=== PATIENT | female | born 1990 | race Caucasian/White ===

== ENCOUNTER 2018-01-07 20:03 | Inpatient (IN) | payer BC ==
[~2018-01-07] VITALS: Ht 162.6 cm; Wt 83.6 kg
[~2018-01-07 20:03] MED LIST: ACET1TAB43 PO; APRI; ASCO10006 PO; DOCU100C37 PO; FERR325T18 PO; FOLI0.4T2 PO; IBUP-1773 PO; PREN-37 PO
--- OUTSIDE RECORDS SUMMARY | 2018-01-07 20:07 | XMS REPORT | Continuity of Care Document ---
Author Author [facility] Organization [facility] Address Unknown Phone Unavailable Allergies Active Description Code Type Severity Reaction Onset Reported/Identified Relationship to Patient Clinical Status Yes amoxicillin [id number] Drug Allergy Mild N/A 06/30/2009 Yes Penicillins [id number] Drug Allergy Mild N/A 06/30/2009 Medications There is no data. Problems Date Dx Coded Attending Type Code Diagnosis Diagnosed By 07/02/2015 YANDEL MÁRQUEZ DO, Ot D62 ACUTE POSTHEMORRHAGIC ANEMIA 07/02/2015 YANDEL MÁRQEUZ DO, Ot K42.9 UMBILICAL HERNIA WITHOUT OBSTRUCTION OR 07/02/2015 YANDEL MÁRQUEZ DO, Ot O48.0 POST-TERM 07/02/2015 YANDEL MÁRQUEZ DO, Ot O70.1 SECOND DEGREE PERINEAL LACERATION DURING 07/02/2015 YANDEL MÁRQUEZ DO, Ot O71.89 OTHER SPECIFIED OBSTETRIC TRAUMA 07/02/2015 YANDEL MÁRQUEZ DO, Ot O90.81 ANEMIA OF THE PUERPERIUM 07/02/2015 YANDEL MÁRQUEZ DO, Ot O99.62 DISEASES OF THE DIGESTIVE SYSTEM COMPLIC 07/02/2015 YANDEL MÁRQUEZ DO, Ot Z23 ENCOUNTER FOR IMMUNIZATION 07/02/2015 YANDEL MÁRQUEZ DO, Ot Z37.0 SINGLE LIVE 07/02/2015 YANDEL MÁRQUEZ DO, Ot Z3A.40 40 WEEKS GESTATION OF Procedures Code Description Performed By Performed On [id number] REPAIR PERINEUM MUSCLE, OPEN APPROACH 07/01/2015 [id number] DELIVERY OF PRODUCTS OF CONCEPTION, EXTE 07/01/2015 Results There is no data. Encounters ACCT No. Visit Date/Time Discharge Status Pt. Type Provider Facility Loc./Unit Complaint [id number] 06/30/2015 19:19:00 07/02/2015 16:15:00 DIS Inpatient YANDEL MÁRQUEZ DO [facility] INDUCTION [id number] 01/07/2018 20:03:00 ACT Inpatient YANDEL MÁRQUEZ DO [facility] INDUCTION
[2018-01-07] MEDS: LACTATED RINGERS 1,000 ML IV SCH (20:45)
[2018-01-07 21:00] VITALS: BP 134/73
[2018-01-07] MEDS ORDERED: MISOPROSTOL 100 MCG (CYTOTEC) TAB ONE (21:30)
[2018-01-07] MEDS ORDERED: MINERAL OIL CONCENTRATE 99.9% 15 ML UDC TOP PRN (21:30)
[2018-01-07] MEDS ORDERED: MISOPROSTOL 100 MCG (CYTOTEC) TAB PO ONE (21:30)
[2018-01-07] MEDS ORDERED: TERBUTALINE INJ 1 MG/ML (BRETHINE) AMP SC PRN (21:30)
[2018-01-07] MEDS ORDERED: D5 LR IV SOLUTION 1,000 ML IV ONE (21:31)
[2018-01-07 21:32] LABS: BASOPHILS % (AUTO) 0 % (0-10); EOSINOPHILS # (AUTO) 0.1 10^3/uL (0.0-0.3); EOSINOPHILS % (AUTO) 1 % (0-10); HEMATOCRIT 36 % (35-52); HEMOGLOBIN 12.4 G/DL (11.5-16.0); LYMPHOCYTES # (AUTO) 1.5 X 10^3 (1.0-4.0); LYMPHOCYTES % (AUTO) 15 % (12-44); MEAN CORPUSCULAR HEMOGLOBIN 32 PG (25-34); MEAN CORPUSCULAR HGB CONC 34 G/DL (32-36); MEAN CORPUSCULAR VOLUME 93 FL (80-99); MEAN PLATELET VOLUME 9.8 FL (7.4-10.4); MONOCYTES # (AUTO) 0.5 X 10^3 (0.0-1.0); MONOCYTES % (AUTO) 5 % (0-12); NEUTROPHILS # (AUTO) 8.5 X 10^3 (1.8-7.8); NEUTROPHILS % (AUTO) 80 % (42-75); PLATELET COUNT 176 10^3/uL (130-400); RED BLOOD COUNT 3.87 10^6/uL (4.35-5.85); RED CELL DISTRIBUTION WIDTH 13.3 % (10.0-14.5); WHITE BLOOD COUNT 10.6 10^3/uL (4.3-11.0)
[2018-01-07] MEDS: D5 LR IV SOLUTION 1,000 ML IV SCH (21:50)
[2018-01-07 22:00] VITALS: BP 120/76
[2018-01-07] MEDS ORDERED: CATHETER FLUSH 10 ML SYR IV SCH (22:00)
[2018-01-07 23:00] VITALS: BP 118/65
[2018-01-08] VITALS (44 sets, daily range): BP systolic 95–166; BP diastolic 55–102
[2018-01-08] MEDS: MISOPROSTOL 100 MCG (CYTOTEC) TAB PO SCH ×3 (01:31→05:36)
[2018-01-08] MEDS: D5 LR IV SOLUTION 1,000 ML IV SCH (05:36)
[2018-01-08] MEDS: LACTATED RINGERS 1,000 ML IV SCH (06:26)
[2018-01-08] MEDS ORDERED: SUFENTA 0.6MCG/ML BUPIVA 0.125 100 ML ONE (06:41)
[2018-01-08] MEDS ORDERED: BUPIVACAINE 0.25% 30 ML (SENSORCAINE) VIAL ONE (06:49)
[2018-01-08] MEDS ORDERED: fentaNYL INJECTION 100 MCG/2 ML AMP ONE (06:50)
[2018-01-08] MEDS ORDERED: LACTATED RINGERS 1,000 ML IV ONE (07:36)
[2018-01-08] MEDS ORDERED: NALOXONE 0.4 MG/ML 1 ML (NARCAN) VIAL IV PRN ×2 (07:45)
[2018-01-08] MEDS ORDERED: METOCLOPRAMIDE INJ 10 MG/2 ML (REGLAN) IV PRN (07:45)
[2018-01-08] MEDS ORDERED: diphenhydrAMINE 50 MG/ML INJ (BENADRYL) IV PRN (07:45)
[2018-01-08] MEDS ORDERED: EPIDURAL (SUFENTA 0.6MCG/ML BUPIVA 0.125%) 100 ML BAG EPI PRN (07:45)
[2018-01-08] MEDS ORDERED: ONDANSETRON 4 MG/2 ML (SDV) Z0FRAN IV PRN (07:45)
[2018-01-08] MEDS ORDERED: OXYTOCIN/NORMAL SALINE 500 ML IV ONE (10:35)
[2018-01-08] MEDS ORDERED: OXYTOCIN/NORMAL SALINE 500 ML IV SCH (11:49)
--- NOTE | 2018-01-08 11:52 | OB Labor & Delivery Record ---
Vag Delivery Note Vag Delivery Note Date of Delivery: 01/08/18 Preoperative Diagnosis: Ame Tran is a 27 /Para 2/1 ,Gestational Age 39 weeks for induction of labor Postoperative Diagnosis: Same Surgeon: YANDEL MÁRQUEZ Anesthesia: epidural Delivery Type: epidural Findings: Viable female , apgars 8/9 weight pending Lacerations: 2nd degree Intact placenta with 3 vessel cord. No nuchal cord, body cord or shoulder dystocia Estimated Blood Loss: 200 ml Complications: None Condition: Stable Description of Procedure: The patient is a 27 /Para 2/1 ,Gestational Age 39 weeks for induction of labor. She was admitted and informed consent was obtained. Her labor course was remarkable for misoprostol, AROM, augmentation. She progressed to complete dilatation and began to push. She was then set up for delivery. The infant's head was delivered atraumatically in the OA position. The shoulders and remainder of the 's body were then delivered without difficulty. Upon delivery, the head was held below the level of the perineum and the mouth and nares were bulb suctioned. The cord was doubly clamped and cut and the infant was handed off to the pediatric staff. An intact placenta with 3-vessel cord delivered via Lavinia and there was found to be minimal bleeding.~ Vigorous fundal massage was performed and the fundus was found to be firm. IV oxytocin was given. Examination of the vagina and perineum revealed a 2nd laceration repaired in the usual fashion with 3-0 vicryl suture. Following the repair, sponge, instrument and needle counts were correct. Mom and baby were both in stable condition in the labor suite. Vitals - Labs Vital Signs - I&O Vital Signs Date Time Temp Pulse Resp B/P (MAP) Pulse Ox O2 Delivery O2 Flow Rate FiO2 01/08/18 09:30 98.3 120/69 (86) 01/08/18 09:25 76 127/73 (91) 97 01/08/18 09:20 77 120/75 (90) 97 01/08/18 09:15 74 18 115/67 (83) 96 01/08/18 09:07 67 119/69 (86) 98 01/08/18 09:00 69 18 118/73 (88) 97 01/08/18 08:45 92 18 110/69 (83) 97 01/08/18 08:30 91 18 107/70 (82) 97 01/08/18 08:15 99 18 125/74 (91) 96 01/08/18 08:07 80 121/74 (90) 96 01/08/18 08:03 81 121/76 (91) 96 01/08/18 08:00 01/08/18 07:56 92 18 129/74 (92) 98 01/08/18 07:51 85 18 121/68 (85) 98 01/08/18 07:48 70 18 122/71 (88) 01/08/18 07:46 78 18 116/68 (84) 01/08/18 07:45 74 18 131/65 (87) 98 01/08/18 07:40 77 18 129/58 (81) 01/08/18 07:38 81 18 133/77 (95) 97 01/08/18 07:35 70 18 113/66 (82) 01/08/18 07:30 80 18 109/66 (80) 98 01/08/18 07:28 80 18 128/78 (95) 99 01/08/18 07:23 78 18 133/82 (99) 01/08/18 07:20 99.1 84 18 130/83 (99) 01/08/18 07:15 82 18 154/86 (108) 100 01/08/18 07:00 70 18 126/87 (100) 01/08/18 06:00 98.9 85 18 123/78 (93) 01/08/18 05:00 75 18 115/72 (86) 01/08/18 04:00 99 18 105/56 (72) 01/08/18 03:00 72 18 95/55 (68) 01/08/18 02:00 72 18 118/76 (90) 01/08/18 01:00 78 18 116/69 (85) 01/08/18 00:00 85 18 112/65 (81) 01/07/18 23:00 91 18 118/65 (82) 01/07/18 22:00 90 18 120/76 (91) 01/07/18 21:00 105 18 134/73 (93) Labs Laboratory Tests 01/07/18 20:45: White Blood Count 10.6, Red Blood Count 3.87L, Hemoglobin 12.4, Hematocrit 36, Mean Corpuscular Volume 93, Mean Corpuscular Hemoglobin 32, Mean Corpuscular Hemoglobin Concent 34, Red Cell Distribution Width 13.3, Platelet Count 176, Mean Platelet Volume 9.8, Neutrophils (%) (Auto) 80H, Lymphocytes (%) (Auto) 15 , Monocytes (%) (Auto) 5, Eosinophils (%) (Auto) 1, Basophils (%) (Auto) 0, Neutrophils # (Auto) 8.5H, Lymphocytes # (Auto) 1.5, Monocytes # (Auto) 0.5, Eosinophils # (Auto) 0.1, Basophils # (Auto) 0.0 YANEDL MÁRQUEZ DO Jan 08, 2018 11:51
[2018-01-08] MEDS ORDERED: IBUPROFEN 600 MG (MOTRIN) TAB PO ONE (11:54)
[2018-01-08] MEDS ORDERED: ACETAMINOPHEN 500 MG TAB (TYLENOL) PO PRN (12:00)
[2018-01-08] MEDS ORDERED: BENZOCAINE/MENTHOL (DERMOPLAST) 56 ML CAN TP PRN (12:00)
[2018-01-08] MEDS ORDERED: WITCH HAZEL(TUCKS) 40 EA JAR TOP PRN (12:00)
[2018-01-08] MEDS ORDERED: MEASLES,MUMPS,RUBELLA 1 EA INJ SQ ONE (12:00)
[2018-01-08] MEDS ORDERED: TETANUS,DIPTH,PERTUSS P/F (BOOSTRIX) 0.5 ML VIAL IM ONE (12:00)
[2018-01-08] MEDS ORDERED: CATHETER FLUSH 10 ML SYR IV SCH (14:00)
[2018-01-08] MEDS: IBUPROFEN 600 MG (MOTRIN) TAB PO SCH ×2 (15:54→17:38)
[2018-01-08] MEDS ORDERED: DOCUSATE SODIUM 100 MG (COLACE) CAP PO SCH (21:00)
[2018-01-08] MEDS ORDERED: ZOLPIDEM 5 MG (AMBIEN) TAB PO SCH (21:00)
[2018-01-09] MEDS: IBUPROFEN 600 MG (MOTRIN) TAB PO SCH ×3 (00:09→12:37)
[2018-01-09 05:20] VITALS: BP 112/60
[2018-01-09 06:05] LABS: BASOPHILS % (AUTO) 0 % (0-10); EOSINOPHILS # (AUTO) 0.1 10^3/uL (0.0-0.3); EOSINOPHILS % (AUTO) 1 % (0-10); HEMATOCRIT 36 % (35-52); HEMOGLOBIN 12.3 G/DL (11.5-16.0); LYMPHOCYTES # (AUTO) 1.9 X 10^3 (1.0-4.0); LYMPHOCYTES % (AUTO) 18 % (12-44); MEAN CORPUSCULAR HEMOGLOBIN 32 PG (25-34); MEAN CORPUSCULAR HGB CONC 34 G/DL (32-36); MEAN CORPUSCULAR VOLUME 95 FL (80-99); MEAN PLATELET VOLUME 9.8 FL (7.4-10.4); MONOCYTES # (AUTO) 0.7 X 10^3 (0.0-1.0); MONOCYTES % (AUTO) 6 % (0-12); NEUTROPHILS # (AUTO) 7.8 X 10^3 (1.8-7.8); NEUTROPHILS % (AUTO) 75 % (42-75); PLATELET COUNT 114 10^3/uL (130-400); RED BLOOD COUNT 3.82 10^6/uL (4.35-5.85); RED CELL DISTRIBUTION WIDTH 13.7 % (10.0-14.5); WHITE BLOOD COUNT 10.4 10^3/uL (4.3-11.0)
[2018-01-09] MEDS ORDERED: PRENATAL VITAMIN 1 EA TAB PO SCH (07:00)
[2018-01-09] MEDS ORDERED: FERROUS SULF 325 MG (IRON) TAB PO SCH (08:00)
[2018-01-09 08:53] VITALS: BP 97/67
[2018-01-09] MEDS ORDERED: IBUP-844 PO (12:41)
--- NOTE | 2018-01-09 12:43 | Discharge Inst-Women's Service ---
Discharge Inst-Women's Serv Depart Medication/Instructions New, Converted or Re-Newed RX: Call to Patients Pharmacy Final Diagnosis induction vaginal delivery Consults/Follow Up Additional Follow Up: Yes (6 weeks) Activity Activity: Activity as Tolerated Driving Instructions: You May Drive NO SMOKING: NO SMOKING Nothing Inside Vagina: No Douching, No [place], No Tampons Diet Discharge Diet: No Restrictions Symptoms to Report to : Swelling Increased, Bleeding Excessive, Pain Increased, Fever Over 101 Degrees F, Vaginal Bleeding Increase, Vaginal Discharge Foul For Any Problems or Questions: Contact Your Physician YANDEL MÁRQUEZ DO Jan 09, 2018 12:43
--- NOTE | 2018-01-09 13:56 | Anesthesia-Regional Post-Op ---
Regional Patient Condition Mental Status: Alert, Oriented x3 Circulation: Same as Pre-Op Headache: Absent Sensation: Full Recovery Motor Block: Absent Post Op Complications Complications None Follow Up Care/Instructions Patient Instructions None needed. Anesthesia/Patient Condition Patient is doing well, no complaints, stable vital signs, no apparent adverse anesthesia problems. No complications reported per nursing. SANTANA LANDRY CRNA Jan 09, 2018 13:56
== END 2018-01-09 15:10 | disposition home or self-care (01) | DRG 807 ==
LOC: LDRP 20:03
PROVIDERS: ADMIT Obstetrics & Gynecology; ATTEND Obstetrics & Gynecology
PROC: 3E0DXGC Introduction of Other Therapeutic Substance into Mouth and Pharynx, External Approach (ICD-10-PCS; 2018-01-07)
PROC: 10E0XZZ Delivery of Products of Conception, External Approach (ICD-10-PCS; principal; 2018-01-08)
PROC: 0KQM0ZZ Repair Perineum Muscle, Open Approach (ICD-10-PCS; 2018-01-08)
DX: O99.513 Diseases of the respiratory system complicating pregnancy, third trimester (principal); J45.909 Unspecified asthma, uncomplicated; O70.1 Second degree perineal laceration during delivery; Z3A.39 39 weeks gestation of pregnancy; Z37.0 Single live birth
CPT/HCPCS: 36415; 83033; 85025; 86850; 86900; 86901

== ENCOUNTER → 2020-03-10 | Outpatient (CLI) | payer BC ==
[~2020-03-10] MED LIST changes: +ASCO100024 PO; -ASCO10006 PO; +IBUP-844 PO
--- NOTE | 2020-03-10 11:14 | Diagnostic Imaging Report ---
Limited ultrasound right breast INDICATION: Right breast mass By history, the patient has a palpable abnormality in the 6 o'clock position of the right breast. The diagnostic mammogram performed prior to this study failed to show any sign of malignancy. On this exam, there is no discrete solid or cystic mass identified. There is no sign of an abscess either. It may be that the palpable abnormality in question is related to fibroglandular tissue alone. Clinical follow-up is recommended. IMPRESSION: There is no evidence for malignancy. Clinical follow-up is recommended. ACR Category 1. ACR BI-RADS Category 1: Negative. Result letter will be mailed to the patient. Note: At least 10% of breast cancer is not imaged by mammography. Dictated by: Dictated on workstation # [id number]
--- NOTE | 2020-03-10 14:41 | Diagnostic Imaging Report ---
Digital mammogram, bilateral diagnostic. INDICATION: Right breast lump. This is the patient's baseline exam. At this time, there is clinical concern regarding a palpable abnormality in the 6 o'clock position of the right breast. A marker was placed over the area of concern. There is no primary or secondary sign of malignancy evident in this region. Even so, I would recommend that ultrasound be performed for further study. The fibroglandular tissue in both breasts is heterogeneously dense. There are a number of benign-appearing calcifications scattered throughout both breasts. There is no primary or secondary sign of malignancy noted otherwise. IMPRESSION: 1. There is no evidence of malignancy. In particular, there is no mammographic abnormality to correspond to the patient's reported palpable mass in the 6 o'clock position of the right breast. 2. Ultrasound of the right breast is pending for further study. Mixed ACR category 0. ACR BI-RADS Category 0: Incomplete. (Needs additional imaging evaluation). Result letter will be mailed to the patient. Note: At least 10% of breast cancer is not imaged by mammography. Dictated by: Dictated on workstation # [id number]
== END ==
LOC: RAD 09:15
PROVIDERS: ATTEND Nurse Practitioner
DX: N63.15 Unspecified lump in the right breast, overlapping quadrants (principal)
CPT/HCPCS: 76642; 77066; G0279; 77062

== ENCOUNTER 2020-07-06 12:48 | Day surgery (SDC) | payer BC ==
[~2020-07-06] VITALS: Ht 162.6 cm; Wt 83.0 kg
[2020-07-06] VITALS (11 sets, daily range): BP systolic 98–125; BP diastolic 56–70
[~2020-07-06 12:48] MED LIST changes: -ACHD5005 PO; -ALBUTEROL SULFATE IH; -DOCU-143 PO; -MV-M1TAB20 PO; -VITAMIN D PO
[2020-07-06] MEDS ORDERED: LIDOCAINE/EPI 1%-1:100,000 (XYLOCAINE) 20ML ONE (13:25)
[2020-07-06] MEDS: LACTATED RINGERS 1,000 ML IV PRN ×2 (13:25→14:40)
[2020-07-06] MEDS ORDERED: ceFAZolin 1,000 MG/SWFI 10 ML IV PUSH IV ONE ×2 (13:30)
[2020-07-06] MEDS ORDERED: metroNIDAZOLE 500MG/100ML IVPB 100 ML IV ONE (13:30)
[2020-07-06] MEDS ORDERED: fentaNYL INJ 100 MCG/2 ML AMP ONE (13:34)
[2020-07-06] MEDS ORDERED: MIDAZOLAM 2 MG/2 ML (VERSED) VIAL ONE (13:34)
[2020-07-06] MEDS ORDERED: ROCURONIUM 10 MG/ML 5 ML SYRINGE IV ONE (13:48)
[2020-07-06] MEDS ORDERED: ONDANSETRON 4 MG/2 ML (SDV) Z0FRAN ONE ×3 (13:48→15:19)
[2020-07-06] MEDS ORDERED: proPOfol 200 MG/20 ML (DIPRIVAN) VIAL IV ONE (13:48)
[2020-07-06] MEDS ORDERED: SEVOFLURANE (ULTANE) 15 ML INHAL SOLN ONE (13:49)
--- NOTE | 2020-07-06 13:49 | History & Physical-Surgical ---
History of Present Illness History of Present Illness Reason for visit/HPI CC appendicitis 30 year old female rlq abd pain started 0730 this am. Pain worsened with movement. Nothing makes better. Achy/sharp pain. No radiation. Last couple weeks hasn't felt overall to well. Had ct scan this morning showing acute appendicitis. Denies n/v fever sweats chills shortness of breath or chest pain. Date of Admission T Date Seen by a Provider: July 06, 2020 Time Seen by a Provider: 12:56 I consulted on this patient on 07/06/20 13:44 Attending Physician Cata Campbell DO Admitting Physician Chuck Guajardo MD Consult Allergies and Home Medications Allergies Coded Allergies: Penicillins (Unverified Allergy, Mild, 06/30/09) amoxicillin (Unverified Allergy, Mild, 06/30/09) Home Medications Ascorbic Acid 1,000 Mg Tablet, 1,000 MG PO DAILY, (Reported) Docusate Sodium 100 Mg Capsule, 100 MG PO BID Prescribed by: YANDEL MÁRQUEZ on 07/01/15 1659 Folic Acid 0.4 Mg Tablet, 0.4 MG PO DAILY, (Reported) Ibuprofen 600 Mg Tablet, 600 MG PO Q6H Prescribed by: YANDEL MÁRQUEZ on 01/09/18 1241 Vit/Iron Fumarate/FA 1 Each Tablet, 1 EACH PO DAILY, (Reported) Patient Home Medication List Home Medication List Reviewed: Yes Past Cuuffth-Nkrsiv-Nvuglk Hx Patient Social History Smoking Status: Never a Smoker Recent Hopitalizations: No Immunizations Up To Date Tetanus Booster (TDap): Less than 5yrs PED Vaccines UTD: Yes Date of Influenza Vaccine: Nov 07, 2017 Seasonal Allergies Seasonal Allergies: No Surgeries History of Surgeries: Yes (WISDOM TEETH EXTRACTION- 2005) Respiratory History of Respiratory Disorde: Yes Respiratory Disorders: Asthma Cardiovascular History of Cardiac Disorders: No Neurological History of Neurological Disord: No Reproductive System Hx Reproductive Disorders: No Sexually Transmitted Disease: No HIV/AIDS: No Genitourinary History of Genitourinary Disor: No Gastrointestinal History of Gastrointestinal Di: No Musculoskeletal History of Musculoskeletal Dis: No Endocrine History of Endocrine Disorders: Yes (HYPOGLYCEMIC AT TIMES) HEENT History of HEENT Disorders: No Cancer History of Cancer: No Psychosocial History of Psychiatric Problem: No Integumentary History of Skin or Integumenta: No Blood Transfusions History of Blood Disorders: Yes (ANEMIA) Adverse Reaction to a Blood Tr: No Reviewed Nursing Assessment Reviewed/Agree w Nursing PMH: Yes Family Medical History Significant Family History: No Pertinent Family Hx Family Medial History: Anxiety disorder 19 FATHER Cardiac arrhythmia 19 FATHER FH: depression 19 MOTHER FH: skin cancer 19 MOTHER Review of Systems Constitutional: No chills, No diaphoresis EENTM: No blurred vision, No double vision Respiratory: No cough, No dyspnea on exertion Cardiovascular: No chest pain, No palpitations Gastrointestinal: RLQ; No nausea, No vomiting Genitourinary: No decreased output, No discharge Musculoskeletal: No back pain, No joint pain Skin: No change in color, No change in hair/nails Psychiatric/Neurological: Denies Anxiety, Denies Depressed, Denies Emotional Problems All Other Systems Reviewed Negative Unless Noted: Yes (Negative excepted noted.) Physical Exam Vital Signs Capillary Refill : Height, Weight, BMI Height: 5'4.00" Weight: 184lbs. 4.0oz. 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
[2020-07-06] MEDS ORDERED: MV-M1TAB20 PO (13:57)
[2020-07-06] MEDS ORDERED: VITAMIN D PO (13:58)
[2020-07-06] MEDS ORDERED: ALBUTEROL SULFATE IH (13:59)
[2020-07-06] MEDS ORDERED: GLYCOPYRROLATE 0.2 MG/ML (ROBINUL) 2 ML VIAL ONE (14:09)
[2020-07-06] MEDS ORDERED: KETOROLAC 30 MG/ML VIAL ONE (14:09)
[2020-07-06] MEDS ORDERED: NEOSTIGMINE 3 MG/3 ML VIAL ONE (14:09)
[2020-07-06] MEDS ORDERED: ACHD5005 PO (14:23)
[2020-07-06] MEDS ORDERED: DOCU-143 PO (14:23)
--- NOTE | 2020-07-06 14:23 | Discharge Inst-Simple/Standard ---
Discharge Inst-Standard Discharge Medications New, Converted or Re-Newed RX: RX on Chart Patient Instructions/Follow Up Plan of Care/Instructions/FU: 2 weeks Shannan Activity as Tolerated: No Discharge Diet: Regular Diet Other Inst to Patient Follow up Appt: Make appointment for 2 week. Instructions: No lifting greater than 10 pounds. No strenuous activity. May shower in 24 hours, no tub bath or soaking. Use incentive spirometer at home as directed. No Smoking Skin/Wound Care: You have special glue over your incision that will fall off on it's own. Symptoms to Report: Appetite Changes, Extremity Discoloration, Numbness/Tingling, Swelling Increased, Bleeding Excessive, Eyesight Changes, Pain Increased, Urine Color Change, Constipation(Persistent), Fever over 101 degree F, Pain/Pressure in chest, Urinating Difficulty, Cough Up/Vomit Blood, Heart Beat Irreg/Pounding, Pain/Pressure in jaw, Vaginal Bleeding Increase, Cramps in feet or legs, Lightheadedness, Pain/Pressure in shoulder, Diarrhea(Persistent), Memory Changes Suddenly, Questions/Concerns, Weight gain consecutive days, Dizziness/Fainting, Nausea/Vomiting, Shortness of Breath, Weight gain over 2 pounds If questions or concerns contact your physician Or seek help at emergency department. CATA HENRIQUEZ DO July 06, 2020 14:23
--- NOTE | 2020-07-06 14:24 | Progress Note-Post Operative ---
Post-Operative Progess Note Surgeon (s)/Medical Claims Representative (s) Surgeon CATA HENRIQUEZ DO Medical Claims Representative: na Pre-Operative Diagnosis APPENDICITIS Post-Operative Diagnosis same Procedure & Operative Findings Date of Procedure 07/06/20 Procedure Performed/Findings PROCEDURE: Laparoscopic appendectomy. COMPLICATIONS: None. INDICATIONS: The patient is a 30 year old female who has been having right lower quadrant abdominal pain. Patient's exam consistent with appendicitis. I discussed risk and benefits of laparoscopic appendectomy and all indicated procedures with the possibility being a normal appendix. The patient understands the risks and benefits and wishes to proceed. Consent was signed on the chart. DESCRIPTION OF PROCEDURE: The patient was taken to the operating suite, prepped and draped in a sterile fashion. Timeout was performed. Local anesthetic was infiltrated just above the umbilicus and 11-blade scalpel was used to make a skin incision. Cautery was used to dissect down to the fascia and scored. Kochers were used to grasp and elevate it and the abdomen was then entered. A 0 Vicryl was placed in a [id number] fashion for closure at the end of the case. The balloon trocar was inserted into the abdomen and pneumoperitoneum was achieved. Under direct visualization of the laparoscope, a 5 mm trocar was placed in the suprapubic region and a 5 mm trocar was placed in the left lower quadrant. Appendix was located, Inflamed appendix. The base of the appendix was dissected around. Once at the base an Endo-ESTEFANY 2.5 stapler was then fired across the base of the appendix. The mesoappendix was then divided. It was then placed in an Endobag and removed through the 12 mm trocar site. The abdomen was then irrigated and suctioned. No other pathology noted. The abdomen was then desufflated and the trocars were removed. The 0 Vicryl placed at the beginning of the case was then tied closing the 12 mm fascial defect. The skin was then closed using 4-0 Monocryl in a subcuticular fashion. The abdomen was then washed and dried and Skin Affix was placed over the incisions. The patient tolerated the procedure well without any complications and was taken to the recovery room in stable condition. Anesthesia Type general Estimated Blood Loss Estimated blood loss (mL): minimal Specimens/Packing Specimens Removed appendix CATA HENRIQUEZ DO July 06, 2020 14:24
[2020-07-06] MEDS ORDERED: HYDROmorphone 2 MG/ML VIAL (DILAUDID) IV ONE (14:45)
[2020-07-06] MEDS ORDERED: ONDANSETRON 4 MG/2 ML (SDV) Z0FRAN IVP PRN (14:45)
[2020-07-06] MEDS ORDERED: HYDROcodone/APAP 5 MG/325 MG (LORTAB) TAB ONE (15:19)
[2020-07-06] MEDS ORDERED: HYDROcodone/APAP 5 MG/325 MG (LORTAB) TAB PO ONE (15:30)
[2020-07-06] MEDS ORDERED: ONDANSETRON 4 MG/2 ML (SDV) Z0FRAN IVP ONE (15:30)
== END 2020-07-06 16:40 | disposition home or self-care (01) ==
LOC: SDC 12:48
PROVIDERS: ATTEND Surgery
DX: K35.80 Unspecified acute appendicitis (principal); J45.909 Unspecified asthma, uncomplicated; D64.9 Anemia, unspecified; F32.9 Major depressive disorder, single episode, unspecified; Z88.0 Allergy status to penicillin; Z79.899 Other long term (current) drug therapy; Z88.1 Allergy status to other antibiotic agents; Z85.828 Personal history of other malignant neoplasm of skin; Z82.49 Family history of ischemic heart disease and other diseases of the circulatory system
CPT/HCPCS: 87081; 88304

== ENCOUNTER → 2020-07-06 | Outpatient (CLI) | payer BC ==
[~2020-07-06] MED LIST changes: +ACHD5005 PO; +ALBUTEROL SULFATE IH; +DOCU-143 PO; -FOLI0.4T2 PO; +FOLI0.4T6 PO; +MV-M1TAB20 PO; +VITAMIN D PO
--- NOTE | 2020-07-06 10:36 | Diagnostic Imaging Report ---
PROCEDURE: CT abdomen and pelvis without contrast. TECHNIQUE: Multiple contiguous axial images were obtained through the abdomen and pelvis without the use of intravenous contrast. Auto Exposure Controls were utilized during the CT exam to meet ALARA standards for radiation dose reduction. INDICATION: Vomiting and right lower quadrant pain. COMPARISON: No prior studies are available for comparison. FINDINGS: The lung bases are clear. The liver and gallbladder are unremarkable. There is no biliary ductal dilatation. The pancreas and spleen are unremarkable. No adrenal mass is detected. No renal calculi or hydronephrosis are detected. Aorta is nonaneurysmal. Bowel loops are normal in caliber. The appendix is dilated. There are at least two appendicoliths located within the appendix. No significant periappendiceal inflammation is present, however findings are concerning for appendicitis due to appendiceal dilatation. No free fluid or fluid collection is identified. The uterus, ovaries, and urinary bladder are unremarkable. IMPRESSION: Features are concerning for acute appendicitis. No abscess formation or bowel obstruction is identified. There are at least two appendicoliths located within the appendix. Dictated by: Dictated on workstation # [id number]
== END ==
LOC: RAD 10:16
PROVIDERS: ATTEND Nurse Practitioner Family
DX: R10.31 Right lower quadrant pain (principal); R11.0 Nausea; M54.5 Low back pain; R10.823 Right lower quadrant rebound abdominal tenderness; R82.998 Other abnormal findings in urine
CPT/HCPCS: 74176

== ENCOUNTER 2021-11-29 06:28 | Inpatient (IN) | payer BC ==
[2021-11-29] VITALS (47 sets, daily range): BP systolic 104–150; BP diastolic 56–94
[~2021-11-29 06:28] MED LIST changes: +ACET-11 PO; -ACET1TAB43 PO; +ACHD5005 PO; +ALBUTEROL SULFATE IH; +DOCU-143 PO; +MV-M1TAB20 PO; +VITAMIN D PO
[2021-11-29] MEDS ORDERED: MINERAL OIL 30 ML UDC TOP PRN (07:30)
[2021-11-29] MEDS ORDERED: OXYTOCIN PRE-MIX DRIP 500 ML IV SCH ×2 (07:30→14:45)
[2021-11-29] MEDS ORDERED: D5 LR IV SOLUTION 1,000 ML IV SCH (07:30)
[2021-11-29] MEDS ORDERED: D5 LR IV SOLUTION 1,000 ML IV ONE (07:39)
[2021-11-29 08:21] LABS: BASOPHILS % (AUTO) 0 % (0-10); LYMPHOCYTES # (AUTO) 1.8 10^3/uL (1.0-4.0); MEAN CORPUSCULAR VOLUME 92 fL (80-99); MONOCYTES # (AUTO) 0.5 10^3/uL (0.0-1.0); MONOCYTES % (AUTO) 5 % (0-12)
[2021-11-29 08:22] LABS: EOSINOPHILS # (AUTO) 0.1 10^3/uL (0.0-0.3); EOSINOPHILS % (AUTO) 1 % (0-10); HEMATOCRIT 37 % (35-52); HEMOGLOBIN 12.8 g/dL (11.5-16.0); LYMPHOCYTES % (AUTO) 18 % (12-44); MEAN CORPUSCULAR HEMOGLOBIN 32 pg (25-34); MEAN CORPUSCULAR HGB CONC 35 g/dL (32-36); MEAN PLATELET VOLUME 10.6 fL (9.0-12.2); NEUTROPHILS # (AUTO) 7.5 10^3/uL (1.8-7.8); NEUTROPHILS % (AUTO) 75 % (42-75); PLATELET COUNT 137 10^3/uL (130-400)
--- NOTE | 2021-11-29 08:56 | History & Physical-OB ---
OB - Chief Complaint & HPI Date/Time Date of Admission: Date of Admission: Nov 29, 2021 at 06:28 Date seen by a Provider: Nov 29, 2021 Time Seen by a Provider: 08:15 Chief Complaint/History OB-Reason for Admission/Chief: Induction of Labor Hx : 4 Hx Para: 2 Expected Date of Delivery: Nov 30, 2021 Gestational Age in Weeks: 39 Gestational Age in Days: 6 Indication for induction: maternal discomfort Admission Nurse Assessment Rev: Yes Allergies and Home Medications Allergies Coded Allergies: Penicillins (Unverified Allergy, Mild, 06/30/09) amoxicillin (Unverified Allergy, Mild, 06/30/09) Patient Home Medication List Home Medication List Reviewed: Yes Docusate Sodium (Colace) 100 Mg Capsule, 100 MG PO DAILY Prescribed by: CATA HENRIQUEZ on 07/06/201422 Hydrocodone/Acetaminophen (Hydrocodone-Acetamin 5-325 mg) 1 Each Tablet, 1 EACH PO Q4H PRN for PAIN-MODERATE (5-7) Prescribed by: CATA HENRIQUEZ on 07/06/20 142 Vit/Iron Fumarate/FA ( Tablet) 1 Each Tablet, 1 EACH PO DAILY, (Reported) Entered as Reported by: SANDEEP LANDRY on 06/30/152053 [Albuterol Sulfate] , IH for SHORTNESS OF BREATH, (Reported) Entered as Reported by: FILOMENA RIBEIRO on 07/06/20 1359 [Vitamin D] , 5,000 UNITS PO DAILY, (Reported) Entered as Reported by: FILOMENA RIBEIRO on 07/06/20 1358 OB - History Hx of Present Care: Yes Ultrasounds: Normal mid trimester US Obstetrical Complications: None Medical Complications: None Obstetrical History Hx Termination: Yes Hx Multiple Gestation: No Hx Stillbirth: No Hx Complication: No Hx Induced Hypertens: No Hx Maternal Gestational Diabet: No Delivery History Hx Dystocia: No Hx Large For Gestational Age I: No Hx Small for Gestational Age I: No Hx Section: No Hx Vaginal Delivery Post C-Sec: No Hx Blood Disorders: Yes (ANEMIA) Adverse Rxn to Tranfusion: No Patient Past Medical History nc Immunizations Hepatitis A: Yes Hepatitis B: Yes Tetanus Booster (TDap): Less than 5yrs OB - Admission Exam Physical Exam HEENT: NCAT Heart: Rhythm Normal Lungs: Clear Abdomen: Gravid Extremities: Normal Reflexes: Normal Cervical Dilatation: 3cm Effacement: 75% Station: -1 Membranes: Intact Heart Rate: 130's Accelerations: Accelerations Present Decelerations: No Decelerations Short Term Variability: Present Channel Program Manager Variability: Average (6-25) Contractions on Admission: 6-10 Minutes Apart Intensity: Mild [place] Scoring Tool (Modified) Dilation (cm): 3-4cm (2) Effacement (%): 51-79% (2) Descent/Station: -1,0 (2) Cervix Consistency: Soft (2) Cervix Position: Anterior (2) Add 1 point for: Each previous vaginal delivery (1) [place] Score: 12 Labs Laboratory Tests Test 11/29/21 07:45 Range/Units White Blood Count 10.0 4.3-11.0 10^3/uL Red Blood Count 3.99 3.80-5.11 10^6/uL Hemoglobin 12.8 11.5-16.0 g/dL Hematocrit 37 35-52 % Mean Corpuscular Volume 92 80-99 fL Mean Corpuscular Hemoglobin 32 25-34 pg Mean Corpuscular Hemoglobin Concent 35 32-36 g/dL Red Cell Distribution Width 12.9 10.0-14.5 % Platelet Count 137 130-400 10^3/uL Mean Platelet Volume 10.6 9.0-12.2 fL Immature Granulocyte % (Auto) 1 % Neutrophils (%) (Auto) 75 42-75 % Lymphocytes (%) (Auto) 18 12-44 % Monocytes (%) (Auto) 5 0-12 % Eosinophils (%) (Auto) 1 0-10 % Basophils (%) (Auto) 0 0-10 % Neutrophils # (Auto) 7.5 1.8-7.8 10^3/uL Lymphocytes # (Auto) 1.8 1.0-4.0 10^3/uL Monocytes # (Auto) 0.5 0.0-1.0 10^3/uL Eosinophils # (Auto) 0.1 0.0-0.3 10^3/uL Basophils # (Auto) 0.0 0.0-0.1 10^3/uL Immature Granulocyte # (Auto) 0.1 0.0-0.1 10^3/uL Percent Immature Platelet Fraction 5.2 0.0-7.6 % OB - Assessment/Plan/Diagnosis Assessment Assessment: induction of labor Admission Dx 31 yo @ 39.6 IOL Admission Status: Inpatient Order (span 2 midnights) Reason for Inpatient Admission: IOL at 39 weeks Plan Plan: Induction Induction Method: QUIN KUHN DO Nov 29, 2021 08:56
[2021-11-29] MEDS ORDERED: fentaNYL 2 mcg/ml BUPIVA 0.125 100 ML ONE (09:14)
[2021-11-29] MEDS ORDERED: LIDOCAINE PF 2% 5 ML (XYLOCAINE) VIAL ONE (09:44)
[2021-11-29] MEDS ORDERED: fentaNYL INJ 100 MCG/2 ML AMP ONE (09:44)
[2021-11-29] MEDS ORDERED: METOCLOPRAMIDE INJ 10 MG/2 ML (REGLAN) IV PRN (10:30)
[2021-11-29] MEDS ORDERED: NALOXONE 0.4 MG/ML 1 ML (NARCAN) VIAL IV PRN ×3 (10:30→14:45)
[2021-11-29] MEDS ORDERED: LACTATED RINGERS 1,000 ML IV SCH (10:30)
[2021-11-29] MEDS ORDERED: fentaNYL 2 mcg/ml BUPIVA 0.125 100 ML EPI SCH (10:30)
[2021-11-29] MEDS ORDERED: ONDANSETRON 4 MG/2 ML (SDV) Z0FRAN IV PRN (10:30)
[2021-11-29] MEDS ORDERED: diphenhydrAMINE 50 MG/ML INJ (BENADRYL) IV PRN (10:30)
[2021-11-29] MEDS ORDERED: LIDOCAINE/EPI 2% 1:200,00 (XYLOCAINE) 10 ML VIAL ONE (14:06)
--- NOTE | 2021-11-29 14:43 | OB Labor & Delivery Record ---
L&D History Date of Service Date of Service: Nov 29, 2021 History Expected Date of Delivery: Nov 30, 2021 Gestational Age in Weeks: 39 Hx : 4 Hx Para: 2 Complications Events: Routine care Operative Indications (Cesarea: N/A-Vaginal Delivery Intrapartal Events: None L&D Stage1 Stage One Onset of Labor - Date: Nov 29, 2021 Monitors and Tracing Monitor Mode: Internal Heart Rate: 130 Monitor Accelerations: Uniform Monitor Decelerations: None Celery Cutter Variability: Average (6-10) Short Term Variability: Present Presentation: Vertex Vital Signs VS - Last 72 Hours, by Label 11/29/21 11/29/21 11/29/21 11/29/21 07:07 08:15 08:30 08:45 Temp 36.6 Pulse 83 75 72 69 Resp 18 18 18 18 B/P (MAP) 118/84 (95) 110/75 (87) 119/79 (92) Pulse Ox 97 O2 Delivery Room Air Room Air Room Air Room Air 11/29/21 11/29/21 11/29/21 11/29/21 09:00 09:15 09:30 09:45 Pulse 81 59 67 71 Resp 18 18 18 18 B/P (MAP) 127/78 (94) 111/70 (84) 130/72 (91) 130/78 (95) O2 Delivery Room Air Room Air Room Air Room Air 11/29/21 11/29/21 11/29/21 11/29/21 09:50 09:55 10:00 10:05 Pulse 77 67 89 67 Resp 18 18 18 18 B/P (MAP) 118/77 (91) 130/87 (101) 137/83 (101) 137/74 (95) Pulse Ox 99 98 99 98 O2 Delivery Room Air Room Air Room Air Room Air 11/29/21 11/29/21 11/29/21 11/29/21 10:10 10:15 10:20 10:25 Temp 36.0 Pulse 70 67 64 60 Resp 18 18 18 18 B/P (MAP) 125/74 (91) 116/72 (87) 125/74 (91) 111/65 (80) Pulse Ox 96 96 95 95 O2 Delivery Room Air Room Air Room Air Room Air 11/29/21 11/29/21 11/29/21 11/29/21 10:30 10:35 10:40 10:45 Pulse 90 62 56 61 Resp 18 18 18 18 B/P (MAP) 111/66 (81) 106/58 (74) 112/66 (81) 115/69 (84) Pulse Ox 95 97 97 98 O2 Delivery Room Air Room Air Room Air Room Air 11/29/21 11/29/21 11/29/21 11/29/21 10:50 10:55 11:00 11:15 Pulse 65 74 58 61 Resp 18 18 18 18 B/P (MAP) 109/70 (83) 112/67 (82) 110/70 (83) 110/70 (83) Pulse Ox 96 99 98 96 O2 Delivery Room Air Room Air Room Air Room Air 11/29/21 11/29/21 11/29/21 11/29/21 11:30 11:45 12:00 12:15 Pulse 62 64 71 66 Resp 18 18 18 18 B/P (MAP) 108/67 (81) 104/64 (77) 112/72 (85) 150/72 (98) Pulse Ox 99 98 99 99 O2 Delivery Room Air Room Air Room Air Room Air Rupture of Membranes Spontaneous Ruture of Membrane: No Amniotic Membrane Rupture Time: 0836 Amniotic Membrane Fluid Desc.: Clear Vaginal Bleeding Description: Normal Show Induction/Anesthesia Epidural Cath Placement - Time: 1000 Progress/Notes Patient admitted for elective IOL at 39 weeks. AROM performed, epidural placed, and pitocin augmentation started to max dose of 6 mu. She progressed to complete and + 2 station. L&D Stage2 Stage Two Stage II Date: Nov 29, 2021 Monitors and Tracing Monitor Mode: Internal Heart Rate: 130 Monitor Accelerations: Uniform Monitor Decelerations: Early Celery Cutter Variability: Average (6-10) Short Term Variability: Present Position: Right Occiput Anterior Presentation: Vertex Cord Descript/Complications Cord Vessel Description: 3 Vessels Delivery Type Infant Delivery Method: Spontaneous Vaginal Anterior Shoulder: Right Episiotomy/Perineal Laceration Laceraction(s)/Extensions: Yes (clitoral and perineal lacerations repaired using 3-0 rapide in usual fashion) Condition of Infant Delivery Notes Live male infant weight and apgars pending. Infant on mothers abdomen after delivery without concern Condition of Condition of : Living Exam: No Observed Abnormalities Resuscitation Resuscitation: N/A - Spontaneous Resp L&D Stage3 Stage Three Stage III Date: Nov 29, 2021 Pictocin Pitocin ml/hr: 6 Pitocin Administration Comment: pitocin increased 30 mu wide open after delivery of placenta Placenta Delivery Placenta Delivery: Spontaneous Delivery Summary Summary Estimated blood loss (mL): 350 Attending at delivery: Quin De Oliveira DO Condition of Delivery Examined: Cervix Examined, Uterus Explored Post Hemorrhage: No Condition of Mother stable Condition of (s) stable QUIN DE OLIVEIRA DO Nov 29, 2021 14:43
[2021-11-29] MEDS ORDERED: WITCH HAZEL(TUCKS) 40 EA JAR TOP PRN (14:45)
[2021-11-29] MEDS ORDERED: BENZOCAINE/MENTHOL (DERMOPLAST) 56 ML CAN TP PRN (14:45)
[2021-11-29] MEDS ORDERED: MEASLES,MUMPS,RUBELLA 1 EA INJ SQ ONE (14:45)
[2021-11-29] MEDS ORDERED: DIBUCAINE 1% OINTMENT 30 GM TUBE TOP PRN (14:45)
[2021-11-29] MEDS ORDERED: TETANUS,DIPTH,PERTUSS P/F (BOOSTRIX) 0.5 ML VIAL IM ONE (14:45)
[2021-11-29] MEDS: IBUPROFEN 600 MG (MOTRIN) TAB PO SCH ×2 (15:25→21:10)
[2021-11-29] MEDS: DOCUSATE SODIUM 100 MG (COLACE) CAP PO SCH (21:10)
[2021-11-29] MEDS ORDERED: CATHETER FLUSH 10 ML SYR IV SCH (22:00)
[2021-11-30] MEDS: HYDROcodone/APAP 5 MG/325 MG (LORTAB) TAB PO PRN ×3 (01:16→15:26)
[2021-11-30 01:17] VITALS: BP 126/68
[2021-11-30 03:46] VITALS: BP 130/58
[2021-11-30] MEDS: IBUPROFEN 600 MG (MOTRIN) TAB PO SCH ×3 (03:46→15:26)
[2021-11-30 05:51] LABS: EOSINOPHILS # (AUTO) 0.1 10^3/uL (0.0-0.3); EOSINOPHILS % (AUTO) 1 % (0-10)
[2021-11-30 05:59] LABS: BASOPHILS % (AUTO) 0 % (0-10); HEMATOCRIT 32 % (35-52); HEMOGLOBIN 10.9 g/dL (11.5-16.0); LYMPHOCYTES % (AUTO) 18 % (12-44); MEAN CORPUSCULAR HEMOGLOBIN 32 pg (25-34); MEAN CORPUSCULAR HGB CONC 34 g/dL (32-36); MEAN CORPUSCULAR VOLUME 94 fL (80-99); MEAN PLATELET VOLUME 10.4 fL (9.0-12.2); MONOCYTES # (AUTO) 0.6 10^3/uL (0.0-1.0); MONOCYTES % (AUTO) 5 % (0-12); NEUTROPHILS # (AUTO) 8.3 10^3/uL (1.8-7.8); NEUTROPHILS % (AUTO) 75 % (42-75); PLATELET COUNT 102 10^3/uL (130-400)
[2021-11-30] MEDS ORDERED: PRENATAL VITAMIN 1 EA TAB PO SCH (07:00)
[2021-11-30 08:11] VITALS: BP 116/70
--- NOTE | 2021-11-30 08:20 | Postpartum Progress Note ---
Note Note Day # 1 Subjective: Patient is without complaints. Ambulating, voiding. Tolerating a regular diet without nausea or vomiting. Normal lochia. Pain is well controlled with oral pain medications. Objective: Physical Exam: General - Alert and oriented, no apparent distress Abdomen - Soft, appropriately tender to palpation, non-distended, fundus firm at umbilicus Extremities - no edema, negative Jacob's bilaterally Assessment: PPD 1 NVD Plan: Routine care. Encourage breast feeding. Encourage ambulation. Ferrous sulfate supplementation. Plan for discharge today Vitals - Labs Vital Signs - I&O Vital Signs Date Time Temp Pulse Resp B/P (MAP) Pulse Ox O2 Delivery O2 Flow Rate FiO2 11/30/21 03:46 36.3 68 18 130/58 (82) 98 Room Air 11/30/21 01:17 36.5 79 18 126/68 (87) 98 Room Air 11/29/21 21:09 36.2 77 18 133/60 (84) 98 Room Air 11/29/21 16:45 106 18 112/56 (74) Room Air 11/29/21 16:30 98 18 120/56 (77) Room Air 11/29/21 16:15 101 18 129/56 (80) Room Air 11/29/21 16:00 86 18 119/58 (78) Room Air 11/29/21 15:45 69 18 131/63 (85) Room Air 11/29/21 15:31 73 18 146/61 (89) Room Air 11/29/21 15:30 36.3 71 18 130/76 (94) 99 Room Air 11/29/21 15:15 63 18 120/71 (87) Room Air 11/29/21 15:00 100 18 130/72 (91) Room Air 11/29/21 14:45 84 18 132/80 (97) Room Air 11/29/21 14:30 71 18 127/72 (90) Room Air 11/29/21 14:00 62 18 115/66 (82) Room Air 11/29/21 13:45 61 18 109/61 (77) Room Air 11/29/21 13:30 90 18 134/94 (107) Room Air 11/29/21 13:15 62 18 116/82 (93) Room Air 11/29/21 13:00 74 18 116/82 (93) Room Air 11/29/21 12:45 74 18 117/71 (86) Room Air 11/29/21 12:30 65 18 122/70 (87) 99 Room Air 11/29/21 12:15 66 18 150/72 (98) 99 Room Air 11/29/21 12:00 71 18 112/72 (85) 99 Room Air 11/29/21 11:45 64 18 104/64 (77) 98 Room Air 11/29/21 11:30 62 18 108/67 (81) 99 Room Air 11/29/21 11:15 61 18 110/70 (83) 96 Room Air 11/29/21 11:00 58 18 110/70 (83) 98 Room Air 11/29/21 10:55 74 18 112/67 (82) 99 Room Air 11/29/21 10:50 65 18 109/70 (83) 96 Room Air 11/29/21 10:45 61 18 115/69 (84) 98 Room Air 11/29/21 10:40 56 18 112/66 (81) 97 Room Air 11/29/21 10:35 62 18 106/58 (74) 97 Room Air 11/29/21 10:30 90 18 111/66 (81) 95 Room Air 11/29/21 10:25 60 18 111/65 (80) 95 Room Air 11/29/21 10:20 36.0 64 18 125/74 (91) 95 Room Air 11/29/21 10:15 67 18 116/72 (87) 96 Room Air 11/29/21 10:10 70 18 125/74 (91) 96 Room Air 11/29/21 10:05 67 18 137/74 (95) 98 Room Air 11/29/21 10:00 89 18 137/83 (101) 99 Room Air 11/29/21 09:55 67 18 130/87 (101) 98 Room Air 11/29/21 09:50 77 18 118/77 (91) 99 Room Air 11/29/21 09:45 71 18 130/78 (95) Room Air 11/29/21 09:30 67 18 130/72 (91) Room Air 11/29/21 09:15 59 18 111/70 (84) Room Air 11/29/21 09:00 81 18 127/78 (94) Room Air 11/29/21 08:45 69 18 119/79 (92) Room Air 11/29/21 08:30 72 18 110/75 (87) Room Air Labs Laboratory Tests 11/30/21 05:27: White Blood Count 11.0, Red Blood Count 3.41L, Hemoglobin 10.9L, Hematocrit 32L, Mean Corpuscular Volume 94, Mean Corpuscular Hemoglobin 32, Mean Corpuscular Hemoglobin Concent 34, Red Cell Distribution Width 13.1, Platelet Count 102L, Mean Platelet Volume 10.4, Immature Granulocyte % (Auto) 1, Neutrophils (%) (Auto) 75, Lymphocytes (%) (Auto) 18, Monocytes (%) (Auto) 5, Eosinophils (%) (Auto) 1, Basophils (%) (Auto) 0, Neutrophils # (Auto) 8.3H, Lymphocytes # (Auto) 2.0, Monocytes # (Auto) 0.6, Eosinophils # (Auto) 0.1, Basophils # (Auto) 0.0, Immature Granulocyte # (Auto) 0.1, Percent Immature Platelet Fraction 4.5 QUIN DE OLIVEIRA DO Nov 30, 2021 08:20
--- NOTE | 2021-11-30 08:21 | Discharge Inst-Women's Service ---
Discharge Inst-Women's Serv Depart Medication/Instructions New, Converted or Re-Newed RX: Transmitted to Pharmacy Final Diagnosis PPD 1 NVD Problems Reviewed?: Yes Consults/Follow Up Additional Follow Up: Yes Orders/Referrals Dr. De Oliveira in 6 weeks Activity Activity: Activity as Tolerated Driving Instructions: No Driving for 1 Week NO SMOKING: NO SMOKING Nothing Inside Vagina: No Douching, No [place], No Tampons Diet Discharge Diet: No Restrictions Symptoms to Report to : Bleeding Excessive, Pain Increased, Fever Over 101 Degrees F, Vaginal Bleeding Increase, Questions/Concerns For Any Problems or Questions: Contact Your Physician QUIN DE OLIVEIRA DO Nov 30, 2021 08:21
[2021-11-30] MEDS ORDERED: DOCU100C37 PO (08:23)
[2021-11-30] MEDS ORDERED: ACHD5005 PO (08:23)
[2021-11-30] MEDS ORDERED: DIBU30OI TOP (08:23)
[2021-11-30] MEDS ORDERED: FERR325T24 PO (08:23)
[2021-11-30] MEDS ORDERED: BENZ78AE5 TP (08:23)
[2021-11-30] MEDS ORDERED: IBUP-844 PO (08:23)
[2021-11-30] MEDS ORDERED: FERROUS SULF 325 MG (IRON) TAB PO SCH (09:00)
[2021-11-30] MEDS: DOCUSATE SODIUM 100 MG (COLACE) CAP PO SCH (10:24)
--- NOTE | 2021-11-30 10:49 | Anesthesia-Regional Post-Op ---
Regional Patient Condition Mental Status: Alert, Oriented x3 Circulation: Same as Pre-Op Headache: Absent Sensation: Full Recovery Motor Block: Absent Post Op Complications Complications None Follow Up Care/Instructions Patient Instructions None needed. Anesthesia/Patient Condition Patient is doing well, no complaints, stable vital signs, no apparent adverse anesthesia problems. No complications reported per nursing. STONE LONG CRNA Nov 30, 2021 10:49
[2021-11-30 15:20] VITALS: BP 116/58
== END 2021-11-30 17:15 | disposition home or self-care (01) | DRG 807 ==
LOC: LDRP 06:28
PROVIDERS: ADMIT Obstetrics & Gynecology; ATTEND Obstetrics & Gynecology
PROC: 10E0XZZ Delivery of Products of Conception, External Approach (ICD-10-PCS; principal; 2021-11-29)
PROC: 10907ZC Drainage of Amniotic Fluid, Therapeutic from Products of Conception, Via Natural or Artificial Opening (ICD-10-PCS; 2021-11-29)
PROC: 0W8NXZZ Division of Female Perineum, External Approach (ICD-10-PCS; 2021-11-29)
DX: O80 Encounter for full-term uncomplicated delivery (principal); Z37.0 Single live birth; Z3A.39 39 weeks gestation of pregnancy
CPT/HCPCS: 36415; 83033; 85025; 86850; 86900; 86901

== ENCOUNTER 2022-03-15 20:32 | Observation (INO) | payer BC ==
[~2022-03-15] VITALS: Ht 162.6 cm; Wt 76.3 kg
[~2022-03-15 20:32] MED LIST changes: +BENZ78AE5 TP; +DIBU30OI TOP; +FERR325T24 PO
[2022-03-15] MEDS: NS IV 1000 ML 1,000 ML IV SCH ×2 (21:24→23:01)
[2022-03-15] MEDS ORDERED: KETOROLAC 15 MG/ML VIAL IVP ONE (21:30)
[2022-03-15 21:32] LABS: BASOPHILS % (AUTO) 0 % (0-10); EOSINOPHILS % (AUTO) 0 % (0-10); HEMATOCRIT 38 % (35-52); HEMOGLOBIN 12.8 g/dL (11.5-16.0); LYMPHOCYTES # (AUTO) 1.5 10^3/uL (1.0-4.0); LYMPHOCYTES % (AUTO) 20 % (12-44); MEAN CORPUSCULAR HEMOGLOBIN 31 pg (25-34); MEAN CORPUSCULAR HGB CONC 34 g/dL (32-36); MEAN CORPUSCULAR VOLUME 90 fL (80-99); MEAN PLATELET VOLUME 9.6 fL (9.0-12.2); MONOCYTES # (AUTO) 0.6 10^3/uL (0.0-1.0); MONOCYTES % (AUTO) 8 % (0-12); NEUTROPHILS # (AUTO) 5.3 10^3/uL (1.8-7.8); NEUTROPHILS % (AUTO) 71 % (42-75); PLATELET COUNT 192 10^3/uL (130-400); WHITE BLOOD COUNT 7.4 10^3/uL (4.3-11.0)
--- NOTE | 2022-03-15 21:42 | ED EENT ---
History of Present Illness General Chief Complaint: Oral/Throat Problems Stated Complaint: SORE THROAT, FEVER Source: patient Exam Limitations: no limitations (ERIKA GUDINO APRN) History of Present Illness Date Seen by Provider: Mar 15, 2022 Time Seen by Provider: 20:58 Initial Comments 31-year-old female presents to the ER with reports of sore throat starting last . States her daughters were diagnosed with strep, she tested negative. 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 She took her first shot of Rocephin on 03/08 and started the Z-Cal on Thursday 03/09. States she began to run a fever on Saturday 03/11, so she gave herself another dose of Rocephin. The next day on Saturday she started doxycycline, states she is about detention through prescription. States she has had no relief of her sore throat. Reports exudate on her tonsils and tonsillar swelling. States she also started to develop white-color on her tongue, gave herself Magic mouthwash and felt like it got worse, then gave herself 300 mg of fluconazole. States tonight her tongue started to swell, she took 50 mg of Benadryl which relieved it. She reports drooling and muffled "hot potato" voice when her tongue was swollen, currently the symptoms have improved. She states she is anxious and is concerned for peritonsillar abscess. She also reports right ear pain. Patient states she delivered her child 3 months ago, and has had vaginal bleeding since her delivery. States she had an IUD placed which has not improved the bleeding. Patient is upset that she was supposed to have an MRI done tomorrow to assess the bleeding, but she had to cancel due to her illness. (ERIKA GUDINO APRN) Allergies and Home Medications Allergies Coded Allergies: Penicillins (Unverified Allergy, Mild, 06/30/09) amoxicillin (Unverified Allergy, Mild, 06/30/09) Patient Home Medication List Home Medication List Reviewed: Yes (ERIKA GUDINO APRN) Albuterol Sulfate (Ventolin Hfa) 90 Mcg Hfa.aer.ad, 2 PUFF INH Q6H PRN for SHORTNESS OF BREATH, (Reported) Entered as Reported by: BRIDGETT MARISA on 03/16/221014 Last Action: Reviewed Dexamethasone (Dexamethasone) 4 Mg Tablet, 4 MG PO BID Prescribed by: SUDHAKAR GAVIN on 03/16/221016 Docusate Sodium (Docusate Sodium) 100 Mg Capsule, 100-200 MG PO DAILY, (Reported) Entered as Reported by: BRIDGETT CUNNINGHAM on 03/16/221014 Last Action: Reviewed Levofloxacin (Levofloxacin) 750 Mg Tablet, 750 MG PO DAILY Prescribed by: SUDHAKAR GAVIN on 03/16/221016 Mv-Mn/Iron/FA/Herbal/Digestive ( One Tablet) 27 Mg Iron-360 Mcg-125 Mg- 32 Mg Tablet, 1 EACH PO DAILY, (Reported) Entered as Reported by: BRIDGETT CUNNINGHAM on 03/16/221014 Last Action: Reviewed Discontinued Medications Benzocaine/Menthol (Dermoplast Pain Relieving [place]) 20 %-0.5 % Aerosol, 56 EA TP UD PRN for PAIN- SEE INSTRUCTIONS Discontinued Reason: No Longer Taking Prescribed by: QUIN DE OLIVEIRA on 11/30/21822 Last Action: Discontinued Dibucaine (Dibucaine) 1 % Oint, 1 GM TOP UD PRN for PAIN- SEE INSTRUCTIONS Discontinued Reason: No Longer Taking Prescribed by: QUIN DE OLIVEIRA on 11/30/21822 Last Action: Discontinued Docusate Sodium (Docusate Sodium) 100 Mg Capsule, 100 MG PO BID PRN for CONSTIPATION-1ST LINE Discontinued Reason: No Longer Taking Prescribed by: QUIN DE OLIVEIRA on 11/30/21822 Last Action: Discontinued Doxycycline Hyclate (Doxycycline Hyclate) 100 Mg Tablet, 100 MG PO BID, (Reported) Entered as Reported by: BRIDGETT CUNNINGHAM on 03/16/221014 Last Action: Reviewed Ferrous Sulfate (Ferosul) 325 Mg (65 Mg Iron) Tablet, 325 MG PO DAILY Discontinued Reason: No Longer Taking Prescribed by: QUIN DE OLIVEIRA on 11/30/21822 Last Action: Discontinued Fluconazole (Fluconazole) 150 Mg Tablet, 150-300 MG PO UD PRN for YEAST, (Reported) Entered as Reported by: BRIDGETT CUNNINGHAM on 03/16/221014 Last Action: Reviewed Hydrocodone Bit/Acetaminophen (HYDROcodone/APAP 5 MG/325 MG TAB) 1 Tab Tab, 1 EA PO Q4H PRN for PAIN-MODERATE (5-7) Discontinued Reason: No Longer Taking Prescribed by: QUIN DE OLIVEIRA on 11/30/21822 Last Action: Discontinued Ibuprofen (Ibu) 600 Mg Tablet, 600 MG PO Q6H Discontinued Reason: No Longer Taking Prescribed by: QUIN DE OLIVEIRA on 11/30/21822 Last Action: Discontinued Methylprednisolone (Methylprednisolone Dose Pack) 4 Mg Tablet, 4 MG PO UD Discontinued Reason: No Longer Taking Prescribed by: Erika Gudino on 03/15/222257 Last Action: Discontinued Vit/Iron Fumarate/FA ( Tablet) 1 Each Tablet, 1 EACH PO DAILY, (Reported) Discontinued Reason: No Longer Taking Entered as Reported by: SANDEEP LANDRY on 06/30/152053 Last Action: Discontinued [Albuterol Sulfate] , IH for SHORTNESS OF BREATH, (Reported) Discontinued Reason: No Longer Taking Entered as Reported by: FILOMENA RIBEIRO on 07/06/20 1359 Last Action: Discontinued [Vitamin D] , 5,000 UNITS PO DAILY, (Reported) Discontinued Reason: No Longer Taking Entered as Reported by: FILOMENA RIBEIRO on 07/06/20 1358 Last Action: Discontinued Review of Systems Review of Systems Constitutional: fever Ears: Pain Throat: no symptoms reported, pain, swelling; denies neck stiffness; hoarse, muffled Respiratory: no symptoms reported (ERIKA GUDINO APRN) Past Afztpbu-Ccvvjb-Cchces Hx Immunizations Up To Date Tetanus Booster (TDap): Less than 5yrs PED Vaccines UTD: Yes (ERIKA GUDINO APRN) Seasonal Allergies Seasonal Allergies: No (ERIKA GUDINO APRN) Past Medical History Surgeries: Yes (WISDOM TEETH EXTRACTION- 2006) Respiratory: Yes Asthma Cardiac: No Neurological: No Reproductive Disorders: No Female Reproductive Disorders: Denies Sexually Transmitted Disease: No HIV/AIDS: No Genitourinary: No Gastrointestinal: No Musculoskeletal: No Endocrine: Yes (HYPOGLYCEMIC AT TIMES) HEENT: No Cancer: No Psychosocial: No Integumentary: No Blood Disorders: Yes (ANEMIA) Adverse Reaction/Blood Tranf: No (ERIKA GUDINO APRN) Family Medical History Anxiety disorder 19 FATHER Cardiac arrhythmia 19 FATHER FH: depression 19 MOTHER FH: skin cancer 19 MOTHER No Pertinent Family Hx (ERIKA GUDINO APRN) Physical Exam Vital Signs Vital Signs - First Documented 03/15/22 20:58 Temp 38.7 Pulse 131 Resp 20 B/P (MAP) 132/85 (101) Pulse Ox 97 O2 Delivery Room Air (HERRERA HOWELL ) Height, Weight, BMI Height: 5'4.00" Weight: 184lbs. 4.0oz. 83.092220va; 31.39 BMI Method:Stated General Appearance: mild distress Eyes: bilateral eye normal inspection Ears: right ear erythema, right ear other (fluid behind TM); left ear tenderness Nose: normal inspection Mouth/Throat: No tongue swollen; tonsillar exudate, tonsillar swelling (3+, not touching); No trismus, No uvula swelling, No voice changes; other (uvula midline, tonsils not touching) Neck: non-tender, supple Cardiovascular: no edema, no gallop, no JVD, no murmur, tachycardia Respiratory: lungs clear, normal breath sounds, no respiratory distress, no accessory muscle use Neurologic/Psychiatric: alert, normal mood/affect, oriented x 3 Skin: normal color, warm/dry (ERIKA GUDINO APRN) Progress/Results/Core Measures Results/Orders Lab Results Laboratory Tests Test 03/15/22 21:19 Range/Units White Blood Count 7.4 4.3-11.0 10^3/uL Red Blood Count 4.16 3.80-5.11 10^6/uL Hemoglobin 12.8 11.5-16.0 g/dL Hematocrit 38 35-52 % Mean Corpuscular Volume 90 80-99 fL Mean Corpuscular Hemoglobin 31 25-34 pg Mean Corpuscular Hemoglobin Concent 34 32-36 g/dL Red Cell Distribution Width 11.9 10.0-14.5 % Platelet Count 192 130-400 10^3/uL Mean Platelet Volume 9.6 9.0-12.2 fL Immature Granulocyte % (Auto) 0 % Neutrophils (%) (Auto) 71 42-75 % Lymphocytes (%) (Auto) 20 12-44 % Monocytes (%) (Auto) 8 0-12 % Eosinophils (%) (Auto) 0 0-10 % Basophils (%) (Auto) 0 0-10 % Neutrophils # (Auto) 5.3 1.8-7.8 10^3/uL Lymphocytes # (Auto) 1.5 1.0-4.0 10^3/uL Monocytes # (Auto) 0.6 0.0-1.0 10^3/uL Eosinophils # (Auto) 0.0 0.0-0.3 10^3/uL Basophils # (Auto) 0.0 0.0-0.1 10^3/uL Immature Granulocyte # (Auto) 0.0 0.0-0.1 10^3/uL Prothrombin Time 13.6 12.2-14.7 SEC INR Comment 1.0 0.8-1.4 Activated Partial Thromboplast Time 35 24-35 SEC Sodium Level 139 135-145 MMOL/L Potassium Level 3.4 L 3.6-5.0 MMOL/L Chloride Level 103 98-107 MMOL/L Carbon Dioxide Level 25 21-32 MMOL/L Anion Gap 11 5-14 MMOL/L Blood Urea Nitrogen 12 7-18 MG/DL Creatinine 0.95 0.60-1.30 MG/DL Estimat Glomerular Filtration Rate 82 BUN/Creatinine Ratio 13 Glucose Level 107 H 70-105 MG/DL Lactic Acid Level 1.24 0.50-2.00 MMOL/L Calcium Level 9.0 8.5-10.1 MG/DL Corrected Calcium 9.1 8.5-10.1 MG/DL Total Bilirubin 0.4 0.1-1.0 MG/DL Aspartate Amino Transf (AST/SGOT) 42 H 5-34 U/L Alanine Aminotransferase (ALT/SGPT) 124 H 0-55 U/L Alkaline Phosphatase 116 40-136 U/L C-Reactive Protein High Sensitivity 4.71 H 0.00-0.50 MG/DL Total Protein 6.9 6.4-8.2 GM/DL Albumin 3.9 3.2-4.5 GM/DL Serum Test, Qualitative NEGATIVE NEGATIVE Monoscreen NEGATIVE NEGATIVE Influenza Type A (RT-PCR) Not Detected Not Detecte Influenza Type B (RT-PCR) Not Detected Not Detecte SARS-CoV-2 RNA (RT-PCR) Not Detected Not Detecte Group A Streptococcus Screen NEGATIVE NEGATIVE (DANTE,HERRERA K DO) My Orders Orders - DANTEHERRERA K DO Ceftriaxone (Rocephin) (03/15/22 23:45) Acetaminophen Tablet (Tylenol Tablet) (03/15/22 23:45) Ibuprofen Tablet (Motrin Tablet) (03/15/22 23:45) Ed Iv/Invasive Line Start (03/16/22 00:33) Lactated Ringers (Lr 1000 Ml Iv Solution (03/16/22 00:45) Marivel Pimentel Virus Profile (03/16/22 00:33) Hcg,Qualitative Serum (03/16/22 00:55) (HERRERA HOWELL DO) Medications Given in ED Current Medications Medications Dose Ordered Sig/Ronald Route Start Time Stop Time Status Last Admin Dose Admin Acetaminophen 1,000 mg ONCE ONCE PO 03/15/22 23:45 03/15/22 23:46 DC 03/15/22 23:53 1,000 MG Ceftriaxone Sodium 2000 mg/ Sodium Chloride 50 ml @ 100 mls/hr ONCE ONCE IV 03/15/22 23:45 03/16/22 00:14 DC 03/15/22 23:54 100 MLS/HR Dexamethasone Sodium Phosphate 10 mg ONCE ONCE IV 03/15/22 23:00 03/15/22 23:01 DC 03/15/22 23:00 10 MG Ibuprofen 800 mg ONCE ONCE PO 03/15/22 23:45 03/15/22 23:46 DC 03/15/22 23:54 800 MG Iohexol 100 ml ONCE ONCE IV 03/15/22 23:00 03/15/22 23:08 DC 03/15/22 23:02 75 ML Ketorolac Tromethamine 15 mg ONCE ONCE IVP 03/15/22 21:30 03/15/22 21:31 DC 03/15/22 21:37 15 MG Sodium Chloride 100 ml ONCE ONCE IV 03/15/22 23:00 03/15/22 23:08 DC 03/15/22 23:02 80 ML (HERRERA HOWELL DO) Vital Signs/I&O 03/15/22 03/16/22 03/16/22 03/16/22 20:58 00:53 01:33 01:43 Temp 38.7 36.6 36.6 Pulse 131 89 80 73 Resp 20 18 12 B/P (MAP) 132/85 (101) 110/68 109/63 (78) Pulse Ox 97 99 96 O2 Delivery Room Air Room Air Room Air 03/16/22 03/16/22 03/16/22 02:17 02:19 02:26 Pulse 73 73 B/P (MAP) 109/63 109/63 Pulse Ox 96 O2 Delivery Room Air 03/16/22 00:00 Intake Total 2000 ml Balance 2000 ml (HERRERA HOWELL ) Progress Progress Note #1: Time: 21:15 Progress Note Patient seen and evaluated, resting on bed, mild distress. Tachycardia noted on monitor, fever upon arrival. Based on exam and symptoms, differential diagnosis includes but is not limited to strep a, mononucleosis, viral pharyngitis, COVID/flu, tonsillar abscess, retropharyngeal abscess. Septic work-up initiated due to elevated temperature and elevated heart rate, CBC, CMP, lactic acid, blood cultures x2, strep swab, throat culture, mononucleosis, COVID/flu swab, CRP, IV fluids and Toradol. Will not order CT at this time due to uvula midline, normal voice and no drooling or pooling of saliva at this time, no trismus. Progress Note #2: Time: 22:44 Progress Note Labs reviewed. CBC grossly normal, CMP shows slightly low potassium at 3.4, elevated AST 42, elevated ALT 24, possibly due to recent antibiotic use. Lactic acid negative at 1.24. Coags grossly normal. Negative for COVID, flu, strep, mono. CRP elevated at 4.71. Discussed lab results with the patient. Discussed performing a CT of her neck to assess for peritonsillar abscess. Patient agrees, CT ordered. (ERIKA GUDINO APRN) Progress Note : Progress Note 2330--ASSUMED CARE OF PT AT END OF SHIFT. CT RESULTS ARE PENDING THIS TIME. PT IS FEELING BETTER AT THIS TIME. PT DOES MEET SEPSIS CRITERIA BASED ON FEVER, TACHYCARDIA, SOURCE OF INFECTION. SHE HAS ALSO FAILED OUTPATIENT TREATMENT. THERE IS NO EVIDENCE OF PERITONSILLAR OR RETROPHARYNGEAL ABSCESS. THERE IS NO AIRWAY COMPROMISE. SHE STATES TO ME THAT SHE HAS BEEN SELF TREATING. SHE HAD 2 ROCEPHIN SHOTS, AND THEN THEN STARTED ON ZITHROMAX, AND SHE WAS FEELING BETTER, THEN SHE SWITCHED TO DOXYCYCLINE AND STARTED FEELING WORSE--STARTED RUNNING A FEVER AGAIN, AND HAVING INCREASED PAIN IN HER THROAT FOCUS EXAM DONE AT 0020--HR AND TEMP COMING DOWN. BP AROUND 100 SYSTOLIC. PT IS FEELING BETTER SHE HAS BEEN GIVEN: -IV FLUIDS -STEROIDS -ANTIBIOTICS -ANTIPYRETICS REVIEWED ALL TEST RESULTS, AND RECOMMEND ADMIT, AND SHE IS AGREEABLE TO THIS PLAN. SHE STATES SHE WISHES TO BE A FULL CODE. REVIEWED OLD RECORDS, ONLY ADMITS HERE PREVIOUSLY HAVE BEEN FOR CHILDBIRTH. VITALS STABLE, WITH BP > 100 SYSTOLIC, HR IN 80'S, O2 SATS 98% ON ROOM AIR, AND PT IS AFEBRILE PRIOR TO TRANSFER TO THE FLOOR. (HERRERA HOWELL DO) Diagnostic Imaging Comments CT NECK SOFT TISSUES--PER RADIOLOGIST REPORT AT [address] for comparison. The parotid glands and submandibular glands appear symmetric. There are a few scattered borderline size nodes in the neck soft tissues which are likely reactive. The thyroid gland appeared normal. Visualized portions of lung apices are normal. From sinuses and epiglottis appear normal. There is some swelling of the palatine tonsils but no discrete abscess. IMPRESSION: There are some mildly prominent nodes in the neck bilaterally, which are likely reactive. There is no evidence of abscess. There is mild prominence of the palatine tonsils. Reviewed: Reviewed by Me (HERRERA HOWELL DO) Departure Communication (Admissions) 0025--SPOKE WITH DR. QUIJANO, HOSPITALIST, ACCEPTS PT FOR ADMIT (HERRERA HOWELL DO) Impression Primary Impression: Sepsis Additional Impressions: Tonsillitis Failure of outpatient treatment Disposition: ADMITTED INPATIENT Condition: Stable Admissions Decision to Admit Reason: Admit from ER (General) (ERIKA GUDINO APRN) Decision to Admit Reason: Admit from ER (General) Decision to Admit/Date: Mar 16, 2022 Time/Decision to Admit Time: 00:25 (HERRERA HOWELL DO) Departure-Patient Inst. Referrals: NEETU ARAUJO MD (PCP/Family) Primary Care Physician Add. Discharge Instructions: All discharge instructions reviewed with patient and/or family. Voiced understanding. Scripts Dexamethasone (Dexamethasone) 4 Mg Tablet 4 MG PO BID for 2 Days, #4 TAB Prov: SUDHAKAR GAVIN MD 03/16/22 Levofloxacin (Levofloxacin) 750 Mg Tablet 750 MG PO DAILY for 7 Days, #7 TAB Prov: SUDHAKAR GAVIN MD 03/16/22 ERIKA GUDINO APRN Mar 15, 2022 21:42 HERRERA HOWELL DO Mar 15, 2022 23:40
[2022-03-15 21:50] LABS: ALBUMIN 3.9 GM/DL (3.2-4.5); POTASSIUM 3.4 MMOL/L (3.6-5.0)
[2022-03-15 21:51] LABS: PROTHROMBIN TIME PATIENT 13.6 SEC (12.2-14.7)
[2022-03-15 21:53] LABS: TOTAL PROTEIN 6.9 GM/DL (6.4-8.2)
[2022-03-15 21:54] LABS: BILIRUBIN,TOTAL 0.4 MG/DL (0.1-1.0)
[2022-03-15 21:56] LABS: CREATININE SERUM 0.95 MG/DL (0.60-1.30)
[2022-03-15] MEDS ORDERED: METH4TAB11 PO (22:58)
[2022-03-15] MEDS ORDERED: HOLD METFORMIN - RECEIVED CONTRAST 20 ML VIAL IV SCH (23:00)
[2022-03-15] MEDS ORDERED: NS 100 ML (IVPB) BAG IV ONE (23:00)
[2022-03-15] MEDS ORDERED: IOHEXOL 350 MG/ML 100 ML (OMNIPAQUE 350) VIAL IV ONE (23:00)
[2022-03-15] MEDS ORDERED: IBUPROFEN 800 MG (MOTRIN) TAB PO ONE (23:45)
[2022-03-15] MEDS ORDERED: ACETAMINOPHEN 500 MG TAB (TYLENOL) PO ONE (23:45)
[2022-03-15] MEDS ORDERED: cefTRIAXone 2,000 MG in NS (IVPB) 50 ML IV ONE (23:45)
--- NOTE | 2022-03-16 00:18 | Diagnostic Imaging Report ---
Indication: Sore throat, evaluate for abscess. TECHNIQUE: Multiple contiguous axial images were obtained through the neck after the administration of contrast. Auto Exposure Controls were utilized during the CT exam to meet ALARA standards for radiation dose reduction. There is no prior CT for comparison. The parotid glands and submandibular glands appear symmetric. There are a few scattered borderline size nodes in the neck soft tissues which are likely reactive. The thyroid gland appeared normal. Visualized portions of lung apices are normal. From sinuses and epiglottis appear normal. There is some swelling of the palatine tonsils but no discrete abscess. IMPRESSION: There are some mildly prominent nodes in the neck bilaterally, which are likely reactive. There is no evidence of abscess. There is mild prominence of the palatine tonsils. Dictated by: Dictated on workstation # [id number]
[2022-03-16] MEDS ORDERED: LACTATED RINGERS 1,000 ML IV ONE ×2 (00:45→01:38)
[2022-03-16 01:33] VITALS: BP 109/63
[2022-03-16] MEDS ORDERED: ACETAMINOPHEN 500 MG TAB (TYLENOL) PO PRN (02:15)
[2022-03-16] MEDS ORDERED: fentaNYL INJ 100 MCG/2 ML AMP IV PRN (02:15)
[2022-03-16] MEDS ORDERED: EPINEPHrine 1 MG INJECTION 4 MG in NS (IVPB) 248 ML IV SCH (02:15)
[2022-03-16] MEDS ORDERED: VASOPRESSIN INJECTION 20 UNIT in NS (IVPB) 100 ML IV SCH (02:15)
[2022-03-16] MEDS ORDERED: NOREPINEPHRINE 8 MG/250 ML 250 ML IV SCH (02:15)
[2022-03-16] MEDS ORDERED: ONDANSETRON 4 MG/2 ML (SDV) Z0FRAN IV PRN (02:15)
[2022-03-16] MEDS ORDERED: IBUPROFEN 800 MG (MOTRIN) TAB PO PRN (02:15)
[2022-03-16] MEDS: CEFEPIME INJECTION 1,000 MG in NS (IVPB) 50 ML IV SCH ×2 (02:34→08:05)
[2022-03-16] MEDS: LACTATED RINGERS 1,000 ML IV SCH ×2 (02:35→06:21)
[2022-03-16 04:00] VITALS: BP 100/56
[2022-03-16 08:00] VITALS: BP 123/77
[2022-03-16 08:39] LABS: BASOPHILS % (AUTO) 0 % (0-10); EOSINOPHILS % (AUTO) 0 % (0-10); HEMATOCRIT 34 % (35-52); HEMOGLOBIN 11.4 g/dL (11.5-16.0); LYMPHOCYTES # (AUTO) 0.8 10^3/uL (1.0-4.0); LYMPHOCYTES % (AUTO) 22 % (12-44); MEAN CORPUSCULAR HEMOGLOBIN 31 pg (25-34); MEAN CORPUSCULAR HGB CONC 34 g/dL (32-36); MEAN CORPUSCULAR VOLUME 90 fL (80-99); MEAN PLATELET VOLUME 9.8 fL (9.0-12.2); MONOCYTES # (AUTO) 0.1 10^3/uL (0.0-1.0); MONOCYTES % (AUTO) 2 % (0-12); NEUTROPHILS # (AUTO) 2.6 10^3/uL (1.8-7.8); NEUTROPHILS % (AUTO) 75 % (42-75); PLATELET COUNT 149 10^3/uL (130-400); WHITE BLOOD COUNT 3.5 10^3/uL (4.3-11.0)
[2022-03-16 09:02] LABS: ALBUMIN 3.3 GM/DL (3.2-4.5); BILIRUBIN,TOTAL 0.3 MG/DL (0.1-1.0); CALCIUM 8.6 MG/DL (8.5-10.1); CREATININE SERUM 0.65 MG/DL (0.60-1.30); TOTAL PROTEIN 6.1 GM/DL (6.4-8.2)
[2022-03-16] MEDS ORDERED: ALPRAZolam 0.25 MG (XANAX) TAB PO PRN (09:45)
[2022-03-16] MEDS ORDERED: ALBU18HF2 INH (10:15)
[2022-03-16] MEDS ORDERED: DOCU100C37 PO (10:15)
[2022-03-16] MEDS ORDERED: FLUC150T41 PO (10:15)
[2022-03-16] MEDS ORDERED: MV-M1TAB66 PO (10:15)
[2022-03-16] MEDS ORDERED: DOXY100T2 PO (10:15)
--- NOTE | 2022-03-16 10:16 | Tele-ICU Progress Note ---
Progress Note Video assessment done , Hemodynamically stable Available charting reviewed, discussed with RN NO TELE-ICU CONSULT REQUESTED CONTINUE TO MONITOR PER USUAL TELE-ICU PROTOCOL (1.20) Admitted a 31 y/o with tonsilitis No need for Tele-ICU interventions Plans as delineated by bedside physicians / consultants Focused Exam Lactate Level 03/15/22 21:19: Lactic Acid Level 1.24 Height, Weight, BMI Height: 5'4.00" Weight: 184lbs. 4.0oz. 83.459258nx; 28.85 BMI Method:Stated TINY RAM MD Mar 16, 2022 10:16
[2022-03-16] MEDS ORDERED: DEXA4TAB PO (10:17)
[2022-03-16] MEDS ORDERED: LEVO750T PO (10:17)
[2022-03-16] MEDS ORDERED: LACTATED RINGERS 1,000 ML IV SCH (10:30)
--- NOTE | 2022-03-16 13:53 | Short Stay Summary-Hospitalist ---
ANASTACIOTASIA 03/16/22 1353: History of Present Illness HPI/Chief Complaint Pt presented to the ED this morning after a week of sore throat and failed outpatient treatment. Pt's symptoms started a week ago and have progressively gotten worse including a 103 degree fever. Pt tested negative for strep, COVID, and flu. She also has had two rocephin injections, z-pack, and doxycycline before presenting to the ED. Pt's fever broke Saturday, and lasted 24hrs w/o fever. pt noticed another 103 degree fever and white tonsils/tongue which led her to taking fluconazole. After taking fluconazole, pt stated to drool and noticed her tongue was swollen. This is when the patient decided that she need to go to the ED. CT neck showed prominent palatine tonsils and b/l LAD. Since being admitted, pt received IV fluid which improved her HR IV antibiotics, and steroids. Pt hasn't had a fever since being admitted. Currently pt was in good spirit and states that she feels a lot better. Date Seen 03/16/22 Time Seen by a Provider: 10:00 Attending Physician Chuck Guajardo MD PCP Admitting Physician: Ade Broussard DO Attending Physician: Sudhakar Gavin MD Referring Physician Date of Admission Mar 16, 2022 at 00:25 Home Medications & Allergies Home Medications Reviewed patient Home Medication Reconciliation performed by pharmacy medication reconciliations apprentice technician and/or nursing. Patients Allergies have been reviewed. Allergies Allergies Coded Allergies Penicillins (Unverified Allergy, Mild, 5/6/10) amoxicillin (Unverified Allergy, Mild, 5/6/10) Past Medical/Social/Family Hx Patient Social History Tobacco Use?: No Smoking Status: Never a Smoker Use of E-Cig and/or Vaping dev: No Substance use?: No Pt stated abuse/neglect: No Immunizations Up To Date Influenza Vaccine Up-to-Date: Yes; Up-to-Date First/Initial COVID19 Vaccinat: 03/24/20 Second COVID19 Vaccination Jae: 04/24/20 Tetanus Booster (TDap): Less Than 5 Years Hepatitis A: Yes Hepatitis B: Yes TB Skin Test: Negative Current Status status: No Advance Directives: No Communicates: Verbally Primary Language: Welsh Preferred Spoken Language: Welsh Implanted or Applied Medical D: None Past Medical History Ebstein Pimentel/Mononucleosis Family Medical History Family Hx: Father: HTN; Type II DM Mother: Basal and Squamous Cell Carcinoma Review of Systems Constitutional: diaphoresis EENTM: ear pain, nose congestion Respiratory: cough, short of breath Gastrointestinal: No abdominal pain, No dysphagia; nausea Genitourinary: No dysuria, No frequency Musculoskeletal: neck pain Skin: no symptoms reported Psychiatric/Neurological: Headache; Denies Numbness, Denies Tingling Physical Exam Physical Exam Vital Signs Vital Signs - First Documented 03/15/22 20:58 Temp 38.7 Pulse 131 Resp 20 B/P (MAP) 132/85 (101) Pulse Ox 97 O2 Delivery Room Air Capillary Refill : Less Than 3 Seconds Height, Weight, BMI Height: 5'4.00" Weight: 184lbs. 4.0oz. 83.873644ci; 28.85 BMI Method:Stated General Appearance: No Apparent Distress Eyes: Bilateral Eye Normal Inspection Neck: Tender Midline Respiratory: Chest Non Tender, Lungs Clear, Normal Breath Sounds Cardiovascular: Regular Rate, Rhythm, No Edema, No Murmur, Normal Peripheral Pulses Gastrointestinal: Normal Bowel Sounds, Non Tender, Soft Rectal: Deferred Extremity: Non Tender, No Calf Tenderness Neurologic/Psychiatric: Alert, Oriented x3 Results Results/Procedures Labs Laboratory Tests 03/15/22 21:19 03/16/22 08:25 Patient resulted labs reviewed. Imaging CT NECK (SOFT TISSUE) W Indication: Sore throat, evaluate for abscess. TECHNIQUE: Multiple contiguous axial images were obtained through the neck after the administration of contrast. Auto Exposure Controls were utilized during the CT exam to meet ALARA standards for radiation dose reduction. There is no prior CT for comparison. The parotid glands and submandibular glands appear symmetric. There are a few scattered borderline size nodes in the neck soft tissues which are likely reactive. The thyroid gland appeared normal. Visualized portions of lung apices are normal. From sinuses and epiglottis appear normal. There is some swelling of the palatine tonsils but no discrete abscess. IMPRESSION: There are some mildly prominent nodes in the neck bilaterally, which are likely reactive. There is no evidence of abscess. There is mild prominence of the palatine tonsils. Short Stay Diagnosis Conclusion Plan Strep Pharyngitis - treated Possible thrust-treated Sinus infection- Levaquin Laryngitis-steroids SUDHAKAR GAVIN MD 03/16/22 1758: History of Present Illness Source: patient Exam Limitations: no limitations Time Seen by a Provider: 09:40 Past Medical/Social/Family Hx Patient Social History Tobacco Use?: No Substance use?: No Alcohol Use?: No Physical Exam Physical Exam General Appearance: No Apparent Distress, WD/WN HEENT: PERRL/EOMI, Pharyngeal Erythema, Tonsillar Enlargement Neck: Normal Inspection, Non Tender, Supple Respiratory: Lungs Clear, Normal Breath Sounds, No Respiratory Distress Cardiovascular: Regular Rate, Rhythm, No Edema, No Murmur Gastrointestinal: Normal Bowel Sounds, Non Tender, Soft Extremity: Normal Inspection, No Pedal Edema Neurologic/Psychiatric: Alert, No Motor/Sensory Deficits Skin: Normal Color, Warm/Dry Results Results/Procedures Imaging: Reviewed Imaging Report Short Stay Diagnosis Discharge Diagnosis-Short Stay Admission Diagnosis Sepsis Pharyngitis Final Discharge Diagnosis Sepsis, sinus infection, laryngitis Conclusion Plan Presumed Strep pharyngitis Outpatient strep test negative Two close contacts strep positive Received two doses Rocephin outpatient Strep test negative on arrival Possible oral thrush No thrush present at this time Received Fluconazole yesterday Sinus infection Likely post-URI sinus infection Penicillin allergy Recent cephalosporin use Begin Levaquin Laryngitis Reported hoarse voice yesterday Started on steroids Continue Decadron x 48 hours Dispo: Discharged home in stable condition, follow up with Dr. Guajardo in about a week Diagnosis/Problems Diagnosis/Problems (1) Sepsis Status: Acute (2) Pharyngitis Status: Acute Qualifiers: Qualified Codes: J02.9 - Acute pharyngitis, unspecified (3) Tonsillitis Status: Acute (4) Sinus infection Status: Acute Qualifiers: Qualified Codes: J01.90 - Acute sinusitis, unspecified (5) Laryngitis Status: Acute Supervisory-Addendum Brief Verification & Attestation Participated in pt care: history, MDM, physical Personally performed: exam, history, MDM, supervision of care Care discussed with: Medical Student Procedures: n/a Results interpretation: Verified all documentation A medical student performed and documented this service in my presence. I reviewed and verified all information documented by the medical student and made modifications to such information, when appropriate. I personally performed the physical exam and medical decision making. TASIA CHAVES Mar 16, 2022 13:53 SUDHAKAR GAVIN MD Mar 16, 2022 17:58
== END 2022-03-16 12:30 | disposition home or self-care (01) ==
LOC: EDUNIT# 20:32 → ER 20:34 → ICU 03-16 00:25 → INTOOBSV 03-16 00:25
PROVIDERS: ADMIT Internal Medicine; ATTEND Internal Medicine
DX: A41.9 Sepsis, unspecified organism (principal); J03.90 Acute tonsillitis, unspecified; J01.90 Acute sinusitis, unspecified; J04.0 Acute laryngitis; Z20.822 Contact with and (suspected) exposure to COVID-19; Z88.1 Allergy status to other antibiotic agents; Z88.0 Allergy status to penicillin
CPT/HCPCS: 70491; 80053 ×2; 83605; 84703; 85025 ×2; 85610; 85730; 86141; 86308; 86663; 86664; 86665 ×2; 87040; 87070; 87205; 87430; 87636; 87910; 96361 ×2; 96374; 96375; 96376; 99284; G0378; 36415

== ENCOUNTER → 2022-03-23 | Outpatient (CLI) | payer BC ==
[~2022-03-23] MED LIST changes: +ALBU18HF2 INH; +DEXA4TAB PO; +DOXY100T2 PO; +FLUC150T41 PO; +GADOTERATE 0.5 MMOL/ML (CLARISCAN) 15 ML VIAL IV ONE; +LEVO750T PO; +METH4TAB11 PO; +MV-M1TAB66 PO
--- NOTE | 2022-03-23 15:10 | Diagnostic Imaging Report ---
PROCEDURE: MRI lumbar spine with and without contrast. TECHNIQUE: Multiplanar, multisequence MRI of the lumbar spine was performed with and without contrast. INDICATION: Back pain. Epidural 3 months ago. COMPARISON: CT abdomen and pelvis without contrast 07/06/2020. FINDINGS: There are five lumbar-type vertebral bodies for the purposes of this report. Normal alignment. Vertebral body heights preserved. No suspicious osseous enhancement. No abnormal signal or enhancement in the conus which terminates at L1. Normal morphology of the cauda equina. The visualized pelvis and paravertebral soft tissues are negative. L1-L2: Normal. L2-L3: Normal. L3-L4: Mild facet arthropathy. Mild bilateral lateral recess and neural foraminal narrowing. No spinal canal narrowing. L4-L5: Mild facet arthropathy. Mild bilateral lateral recess narrowing. No spinal canal narrowing. Moderate left and mild right neural foraminal narrowing. L5-S1: Left paracentral disc extrusion results in severe left lateral recess narrowing. No spinal canal narrowing. Disc space height loss results in severe bilateral neural foraminal narrowing. IMPRESSION: 1. Left paracentral disc extrusion at L5-S1 would account for an S1 radiculopathy. 2. Severe bilateral neural foraminal narrowing at L5-S1 would account for bilateral L5 radiculopathies. 3. No high-grade spinal canal stenosis. Dictated by: Dictated on workstation # [id number]
== END ==
LOC: RAD 13:15
PROVIDERS: ATTEND Nurse Practitioner Family
DX: M51.17 Intervertebral disc disorders with radiculopathy, lumbosacral region (principal); M48.07 Spinal stenosis, lumbosacral region
CPT/HCPCS: 72158